=== PATIENT | male | born 1980 | race Caucasian/White ===

== ENCOUNTER 2022-07-22 13:32 | Outpatient (CLI) | payer OTHER ==
--- NOTE | 2022-07-22 16:39 | MRI Report ---
PROCEDURE: LUMBAR SPINE WO INDICATIONS: LOW BACK PAIN TECHNIQUE: Noncontrast sagittal T1 spin echo and T2 fast echo, sagittal STIR, axial T1 and T2 fast spin echo thr ough the lumbar spine. In cases with scoliosis, additional coronal T2 fast spin echo may be performe d. COMPARISON: None. FINDINGS: Image quality: Excellent. Alignment and Curvature: There is normal bony alignment. Bone Marrow: Marrow is of normal overall signal. No acute vertebral body compression fractures. Spinal Cord: Conus medullaris terminates at the L2 level. Visualized cord demonstrates normal signa l and size. Paraspinous Soft Tissues: No paravertebral masses. T12-L1: Disc desiccation. L1-L2: Normal in appearance. L2-L3: Disc desiccation and L3 Schmorl's node. L3-L4: Normal in appearance. L4-L5: Broad-based disc bulge. L5-S1: Asymmetric posterior disc protrusion. The disc closely contacts the exiting S1 nerve root. T here is an annular fissure. Loss of disc desiccation. IMPRESSION: Asymmetric, posterior disc protrusion at L5-S1, resulting in close contact to the nerve root approach ing the S1 foramen. Annular fissure present. Additional mild degenerative disc disease at T12-L1 and L2-3. Reviewed by: Curt Narvaez on 07/22/2022 4:37 PM PDT Approved by: Curt Narvaez on 07/22/2022 4:37 PM PDT Station ID: [id number]
== END 2022-07-22 13:33 | disposition home or self-care (01) ==
LOC: DI 13:32
DX: M51.27 Other intervertebral disc displacement, lumbosacral region (principal); M51.37 Other intervertebral disc degeneration, lumbosacral region; M51.36 Other intervertebral disc degeneration, lumbar region; M51.35 Other intervertebral disc degeneration, thoracolumbar region